=== PATIENT | female | born 1950 | race Caucasian/White ===

== ENCOUNTER 2019-10-19 17:11 | Emergency (ER) | payer BC, SELFPAY ==
--- NOTE | ~2019-10-19 | XR_ITS ---
EXAMINATION: XR chest 2V DATE: 10/19/2019 17:45 INDICATION: Asthma and hypertension presenting with dizziness and racing heart TECHNIQUE: PA and lateral views of the chest were obtained. COMPARISON: Chest radiograph dated 03/20/2019 FINDINGS: The lungs remain clear with no focal airspace opacities, pulmonary edema, pleural effusion or pneumot horax. The cardiomediastinal silhouette is normal. Mild to moderate thoracic spondylosis. IMPRESSION: 1. No acute cardiopulmonary disease. Reviewed, dictated and finalized at location [facility].
[2019-10-19 17:15] VITALS: BP 130/72; PULSE 133; RESP 24; TEMP 36.7; O2SAT 98
--- NOTE | 2019-10-19 17:19 | ECG_ITS ---
Measurements Intervals [place] Rate: 116 P: 67 CA: 141 QRS: -41 QRSD: 90 T: 82 QT: 331 QTc: 461 Interpretive Statements SINUS TACHYCARDIA LEFT AXIS DEVIATION POOR R WAVE PROGRESSION, ANTERIOR LEADS NONSPECIFIC ST & T-WAVE ABNORMALITY- HIGH LATERAL LEADS BASELINE ARTIFACT- I, II, AVR ABNORMAL ECG Electronically Signed On 10-20-2019 6:50:43 CDT by Isiah Cedeno D.O.
[2019-10-19 17:31] LABS: Basophils Absolute Auto 0.1 K/mm3 (0.0-0.1); Basophils Percent Auto 0.6 % (0.2-1.2); Eosinophils Absolute Auto 0.5 K/mm3 (0-0.3); Eosinophils Percent Auto 3.4 % (0-4.4); Hematocrit 44.2 % (37.0-47.0); Hemoglobin 14.3 g/dL (12.0-15.0); Immature Granulocyte Absolute 0.08 K/mm3 (0.00-0.031); Immature Granulocyte Percent A 0.6 % (0-0.5); Lymphocytes Absolute Auto 3.45 K/mm3 (0.9-3.2); Lymphocytes Percent Auto 24.1 % (18.3-44.2); Mean Corpuscular HGB Conc 32.4 g/dl (32-36); Mean Corpuscular Hemoglobin 27.3 pg (26-34); Mean Corpuscular Volume 84.5 fl (80-100); Mean Platelet Volume 10.2 fl (7.4-10.4); Monocytes Absolute Auto 1.4 K/mm3 (0.1-0.6); Monocytes Percent Auto 9.6 % (2.6-8.5); Neutrophils Absolute Auto 8.8 K/mm3 (1.3-6.7); Neutrophils Percent Auto 61.7 % (45.5-73.1); Platelet Count Result 478 k/mm3 (150-375); Red Blood Count 5.23 M/mm3 (4.2-5.4); Red Cell Distribution Width 14.6 % (11.5-14.5); White Blood Count 14.3 K/mm3 (4.5-10.0)
[2019-10-19 17:40] LABS: INR 1.1; Prothrombin Time 13.7 Seconds (11.1-14.7)
[2019-10-19 17:41] LABS: Blood Urea Nitrogen 15 mg/dL (7-17); Calcium 9.8 mg/dL (8.4-10.2); Carbon Dioxide 30 mmol/L (22-30); Chloride 99 mmol/L (98-107); Estimated CRCL calculation 50 ml/min; Estimated Glomerular Filt Rate 49; Glucose 131 mg/dL (65-105); Partial Thromboplastin Time 36.2 SECONDS (22.3-36.8); Potassium 3.3 mmol/L (3.4-5.0); Sodium 139 mmol/L (137-145)
[2019-10-19 17:52] LABS: Troponin I < 0.012 ng/mL (0.000-0.034)
--- NOTE | 2019-10-19 17:56 | ED.GENADULT ---
HPI - General Adult General Chief complaint: Arrhythmia/Palpitations Stated complaint: racing heart, SOB, dizzy Time Seen by Provider: 10/19/19 17:26 History of Present Illness HPI narrative: Patient is a 69 y/o female complaining moderate heart palpitation for 1-2 weeks. She also complains some dizziness/light-headedness. There is no alleviating or exacerbating factor. She denies any chest pain, SOB, room spinning sensation or passing out. Related Data Home Medications Medication Instructions Recorded Confirmed albuterol sulfate [ProAir HFA] See Rx Instructions .ROUTE .COMPLEX 03/20/19 03/20/19 alprazolam 0.25 mg PO Q6H PRN 03/20/19 03/20/19 atorvastatin 10 mg PO DAILY 03/20/19 03/20/19 duloxetine [Cymbalta] 60 mg PO DAILY 03/20/19 03/20/19 esomeprazole magnesium [Nexium] 20 mg PO EVERY OTHER DAY 03/20/19 03/20/19 fluticasone propion-salmeterol 1 puff INHALATION BID 03/20/19 03/20/19 [Advair Diskus] hydroxyzine HCl 25 mg PO QPM 03/20/19 03/20/19 metformin 500 mg PO DAILY 03/20/19 03/20/19 montelukast [Singulair] 10 mg PO DAILY 03/20/19 03/20/19 atorvastatin [Lipitor] 10/19/19 fluticasone propion-salmeterol INHALATION 10/19/19 [Advair Diskus] Allergies Allergy/AdvReac Type Severity Reaction Status Date / Time Sulfa (Sulfonamide AdvReac Unknown VOMITING Verified 10/19/19 17:19 Antibiotics) Review of Systems Constitutional: Constitutional: Denies chills, Denies fever(s), Denies headache(s) and Denies weakness Eyes: Eyes: Denies blurry vision ENT: Denies headache(s) and Denies neck pain Cardiovascular: Cardiovascular: Denies chest pain, Reports rapid heart rate and Denies dyspnea Respiratory: Respiratory: Denies cough and Denies dyspnea Gastrointestinal: Gastrointestinal: Denies abdominal pain, Denies diarrhea, Denies nausea and Denies vomiting Genitourinary: Genitourinary: Denies hematuria and Denies dysuria Musculoskeletal: Musculoskeletal: Denies back pain and Denies neck pain Neurologic: Denies vertigo, Reports dizziness, Denies syncope, Denies headache(s) and Denies weakness [facility] Past Medical History Medical History Anxiety Arthritis Asthma Depression DM II (diabetes mellitus, type II), controlled Eczema Endometriosis GERD (gastroesophageal reflux disease) GI bleed History of kidney stones Hypercholesteremia Hypertension Surgical History Surgical History History of appendectomy History of cholecystectomy History of hysterectomy History of local excision of skin lesion History of mastectomy Lt Family History Family History Father Family history of emphysema Family history of chronic obstructive pulmonary disease Family history of alcoholism Hypertension Mother Family history of malignant neoplasm of breast in first degree relative Family history of alcoholism Hypertension Cerebrovascular accident TIA (transient ischemic attack) Other Family history of cardiovascular disease Social History Social History Smoking status: Never smoker Second hand tobacco smoke exposure: No Alcohol intake: never Gender identity (if verbalized by the patient): Female Exam Const: General: no acute distress and well developed Orientation/consciousness: oriented to person, oriented to place, oriented to time and patient oriented x3 HENMT: Head: normocephalic Ears: external ears normal General nose exam: Normal external nose present Eyes: General: appearance normal, both eyes and all related structures Conjunctivae: conjunctivae normal Neck: Neck: normal visual inspection and full ROM Chest: Chest palpation & inspection: normal inspection of the chest and no tenderness Resp: Effort & Inspection: normal respiratory effort Auscultation: clear to auscultation b
[2019-10-19 20:17] VITALS: BP 119/66; PULSE 88; RESP 20; O2SAT 99
[2019-10-19 20:58] LABS: Troponin I < 0.012 ng/mL (0.000-0.034)
[2019-10-19 21:24] VITALS: BP 130/70; PULSE 80; RESP 20; O2SAT 99
[2019-10-19] MEDS: POTASSIUM CHLORIDE 20 MEQ TABLET PO (21:24)
== END 2019-10-19 21:25 | disposition home or self-care (01) ==
PROVIDERS: Emergency Medicine; Emergency Provider Emergency Medicine; PCP Physician Assistant
DX: R00.2 Palpitations (principal); F41.9 Anxiety disorder, unspecified; J45.909 Unspecified asthma, uncomplicated; M19.90 Unspecified osteoarthritis, unspecified site; E11.9 Type 2 diabetes mellitus without complications; K21.9 Gastro-esophageal reflux disease without esophagitis; Z87.442 Personal history of urinary calculi; E78.00 Pure hypercholesterolemia, unspecified; I10 Essential (primary) hypertension; N80.9 Endometriosis, unspecified; Z90.12 Acquired absence of left breast and nipple; E87.6 Hypokalemia; R00.0 Tachycardia, unspecified; R94.31 Abnormal electrocardiogram [ECG] [EKG]
CPT/HCPCS: 36415; 71046; 80048; 84443; 84484; 85025; 85610; 85730; 93005; 99284; A9270

== ENCOUNTER 2020-09-20 08:10 | Outpatient (CLI) | payer BC, SELFPAY ==
--- NOTE | ~2020-09-20 | MM_ITS ---
EXAMINATION: MM screening becca BI w jony HISTORY: Screening TECHNIQUE: Craniocaudal and mediolateral oblique 3-D tomosynthesis images were obtained and synthetic 2-D images were generated. CAD analysis was submitted and interpreted. COMPARISON: Comparison to multiple prior studies sequentially, with oldest reviewed study dated 07/2015. BREAST PARENCHYMAL COMPOSITION: The breasts are heterogeneously dense, which may obscure small masses . FINDINGS: Bilateral breast calcifications are not significantly changed. There is no evidence of susp icious mass, calcification, or architectural distortion to suggest malignancy in either breast. There has been no suspicious interval change. IMPRESSION: 1. No mammographic evidence of malignancy. 2. Recommend routine screening mammography in one year. BI-RADS Category 2: Benign finding(s). Reviewed, dictated and finalized at location [facility].
== END 2020-09-20 08:11 | disposition home or self-care (01) ==
PROVIDERS: PCP Physician Assistant; Visit Provider Physician Assistant
DX: Z12.31 Encounter for screening mammogram for malignant neoplasm of breast (principal)
CPT/HCPCS: 77063; 77067

== ENCOUNTER 2021-09-30 07:17 | Outpatient (CLI) | payer BC, SELFPAY ==
--- NOTE | ~2021-09-30 | MM_ITS ---
EXAMINATION: MM screening becca BI w jony HISTORY: Screening mammogram TECHNIQUE: Craniocaudal and mediolateral oblique 3-D tomosynthesis images were obtained and synthetic 2-D images were generated. CAD analysis was submitted and interpreted. COMPARISON: 09/20/2020 bilateral screening mammogram 03/2019 diagnostic left mammogram , 12/24/2015 bilateral screening mammogram examinations BREAST PARENCHYMAL COMPOSITION: The breasts are heterogeneously dense, which may obscure small masses . FINDINGS: Biopsy marker on the left; history of prior benign left breast biopsies. Scattered bilateral solitary grouped benign-appearing calcifications are again noted. There is no josie dence of suspicious mass, calcification, or architectural distortion to suggest malignancy in either breast. There has been no suspicious interval change. IMPRESSION: 1. No mammographic evidence of malignancy. 2. Recommend routine screening mammography in one year. BI-RADS Category 2: Benign finding(s). Reviewed, dictated and finalized at location A.
== END 2021-09-30 07:18 | disposition home or self-care (01) ==
LOC: ANHIMG 07:18
PROVIDERS: PCP Physician Assistant; Visit Provider Physician Assistant
DX: Z12.31 Encounter for screening mammogram for malignant neoplasm of breast (principal)
CPT/HCPCS: 77063; 77067

== ENCOUNTER 2022-11-29 13:04 | Emergency (ER) | payer BC, SELFPAY ==
[2022-11-29] VITALS (22 sets, daily range): BP systolic 97–134; BP diastolic 48–101; PULSE 88–136; RESP 11–41; TEMP 36.5; O2SAT 95–100
--- NOTE | ~2022-11-29 | CT_ITS ---
EXAMINATION: CT brain wo con DATE: 11/29/2022 15:13 INDICATION: Dizziness, visual complaint TECHNIQUE: Computed tomography (CT) of the head was performed without intravenous contrast. The mA wa s adjusted according to patient size. Iterative reconstruction technique was employed. Exam dose: 60 5.33 mGy-cm total exam DLP. COMPARISON: None FINDINGS: No intracranial mass lesion or hemorrhage or cerebrovascular accident, midline shift or mas s effect is detected. No subdural or epidural hematoma is detected. The orbital contents are unremarkable. The mastoid air cells and included paranasal sinuses are normally developed and aerated. No fracture or bone destruction of the cranial vault. IMPRESSION: No significant abnormality Reviewed, dictated and finalized at [facility]. Reviewed, dictated and finalized at location [facility]. IMPRESSION: No significant abnormality
--- NOTE | 2022-11-29 13:05 | ECG_ITS ---
Measurements Intervals [place] Rate: 94 P: 58 MO: 145 QRS: -41 QRSD: 76 T: 72 QT: 344 QTc: 431 Interpretive Statements SINUS RHYTHM LEFT AXIS DEVIATION POOR R WAVE PROGRESSION, ANTERIOR LEADS CONSIDER INFERIOR INFARCT, AGE INDETERMINATE BORDERLINE ST-T WAVE ABNORMALITY- HIGH LATERAL LEADS ABNORMAL ECG COMPARED TO ECG 10/19/2019 17:23:17 SINUS RHYTHM NOW PRESENT Electronically Signed On 11-29-2022 13:39:03 CDT by Isiah Cedeno D.O.
[2022-11-29 13:59] LABS: Basophils Absolute Auto 0.1 K/mm3 (0.0-0.1); Basophils Percent Auto 0.6 % (0.2-1.2); Eosinophils Absolute Auto 0.4 K/mm3 (0-0.3); Eosinophils Percent Auto 3.4 % (0-4.4); Hematocrit 42.9 % (37.0-47.0); Hemoglobin 14.3 g/dL (12.0-15.0); Immature Granulocyte Absolute 0.05 K/mm3 (0.00-0.031); Immature Granulocyte Percent A 0.4 % (0-0.5); Lymphocytes Percent Auto 25.4 % (18.3-44.2); Mean Corpuscular HGB Conc 33.3 g/dl (32-36); Mean Corpuscular Hemoglobin 29.7 pg (26-34); Monocytes Absolute Auto 0.9 K/mm3 (0.1-0.6); Neutrophils Percent Auto 63.2 % (45.5-73.1); Platelet Count Result 343 k/mm3 (150-375); Red Blood Count 4.82 M/mm3 (4.2-5.4); Red Cell Distribution Width 14.1 % (11.5-14.5); White Blood Count 12.6 K/mm3 (4.5-10.0)
[2022-11-29 14:24] LABS: Alanine Aminotransferase 32 U/L (6-35); Albumin Level 4.3 g/dL (3.5-5.1); Alkaline Phosphatase 64 U/L (38-126); Anion Gap 8 mmol/L (8-16); Aspartate Amino Transferase 27 U/L (14-36); Bilirubin,Total 0.6 mg/dL (0.2-1.3); Blood Urea Nitrogen 17 mg/dL (7-17); Calcium 9.8 mg/dL (8.4-10.2); Carbon Dioxide 28 mmol/L (22-30); Chloride 101 mmol/L (98-107); Estimated CRCL calculation 66 ml/min; Estimated Glomerular Filt Rate > 60; Glucose 122 mg/dL (65-110); Potassium 3.3 mmol/L (3.4-5.0); Sodium 137 mmol/L (137-145)
--- NOTE | 2022-11-29 14:55 | ED.DIZZY ---
HPI - Dizziness General Chief Complaint: Dizziness Stated Complaint: Lightheaded/dizziness/nausea Time Seen by Provider: 11/29/22 13:32 Source: patient Mode of arrival: ambulatory Limitations: no limitations History of Present Illness HPI Narrative: Patient is a 72 y/o female who presents to the ED with c/o dizziness. Patient reports she has been feeling dizzy and lightheaded intermittently since she sustained a head injury in the middle of July. She was not evaluated at that time. She states the lightheadedness occurs at random times, but is worse when turning her head left or right. She feels as though the symptoms have worsened over the last few weeks. She has not tried to get into her primary care doctor. She reports nausea associated with the lightheadedness. Denies vomiting. She states when she looks around, it feels as though her eyes take a second longer to get into focus. She denies any blurry vision or vision loss. Denies previous diagnosis of vertigo. Denies numbness, focal weakness, abdominal pain, chest pain, headache. Patient is concerned she is having a stroke. She is also concerned these may be side effects related to Ozempic. Patient is on Xarelto due to history of A-fib. Related Data Home Medications Medication Instructions Recorded Confirmed albuterol sulfate 90 mcg/actuation See Rx Instructions .Route .COMPLEX 03/20/19 03/20/19 aerosol inhaler (ProAir HFA) alprazolam 0.25 mg tablet 0.25 mg PO Q6H PRN Anxiety 03/20/19 03/20/19 atorvastatin 10 mg tablet 10 mg PO DAILY 03/20/19 03/20/19 duloxetine 60 mg capsule,delayed 60 mg PO DAILY 03/20/19 03/20/19 release (Cymbalta) esomeprazole magnesium 20 mg 20 mg PO EVERY OTHER DAY 03/20/19 03/20/19 capsule,delayed release (Nexium) fluticasone 100 mcg-salmeterol 50 1 puff inhalation BID 03/20/19 03/20/19 mcg/dose blistr powdr for inhalation (Advair Diskus) hydroxyzine HCl 25 mg tablet 25 mg PO QPM 03/20/19 03/20/19 metformin 500 mg tablet,extended 500 mg PO DAILY 03/20/19 03/20/19 release 24 hr montelukast 10 mg tablet 10 mg PO DAILY 03/20/19 03/20/19 (Singulair) atorvastatin 10 mg tablet (Lipitor) 10/19/19 fluticasone 500 mcg-salmeterol 50 inhalation 10/19/19 mcg/dose blistr powdr for inhalation (Advair Diskus) Allergies Allergy/AdvReac Type Severity Reaction Status Date / Time Sulfa (Sulfonamide AdvReac Unknown VOMITING Verified 10/19/19 17:19 Antibiotics) Review of Systems Review of Systems: CONSTITUTIONAL: Denies fever, chills, or sweats. EYES: See HPI. CARDIOVASCULAR: Denies chest pain. RESPIRATORY: Denies dyspnea. GASTROINTESTINAL: See HPI. GENITOURINARY: Denies dysuria or hematuria. MUSCULOSKELETAL: Denies back pain, joint pain, or myalgia. NEUROLOGIC: See HPI. All systems reviewed & are unremarkable except as noted in HPI and below PMFSH Past Medical History Medical History Anxiety Arthritis Asthma Depression DM II (diabetes mellitus, type II), controlled Eczema Endometriosis GERD (gastroesophageal reflux disease) GI bleed History of kidney stones Hypercholesteremia Hypertension Surgical History Surgical History History of appendectomy History of cholecystectomy History of hysterectomy History of local excision of skin lesion History of mastectomy Lt Family History Family History Father Family history of emphysema Family history of chronic obstructive pulmonary disease Family history of alcoholism Hypertension Mother Family history of malignant neoplasm of breast in first degree relative Family history of alcoholism Hypertension Cerebrovascular accident TIA (transient ischemic attack) Other Family history of cardiovascular disease Social History Social History (Reviewed 11/29/22 @ 18:14 by Marychuy Fournier
[2022-11-29] MEDS: ONDANSETRON INJ 4 MG/2 ML VIAL IV PUSH (15:25)
[2022-11-29] MEDS: SODIUM CHLORIDE 0.9% IV 1,000 ML 999 ML IV CONT (15:25)
[2022-11-29] MEDS: POTASSIUM CHLORIDE 20 MEQ PACKET (FOR LIQUID) PO (15:26)
[2022-11-29] MEDS: CARBAMIDE PEROXIDE 6.5% OT SOLN 15 ML BTL 5 DROP EACH EAR (16:03)
[2022-11-29] MEDS: MECLIZINE HCL 25 MG TABLET PO (16:03)
--- NOTE | 2022-12-07 10:35 | PC.NURSE ---
LATE ENTRY This note is being entered to document information to the patient's record. The following information was omitted on [11/29/2022], by [Wicho Ybarra RN ]. Removal of cerumen performed on both ears. Pt tolerated well. Scant amount of cerumen removed.
== END 2022-11-29 18:12 | disposition home or self-care (01) ==
PROVIDERS: Emergency Medicine; Emergency Provider Physician Assistant; PCP Physician Assistant
DX: R42 Dizziness and giddiness (principal); R11.0 Nausea; H61.23 Impacted cerumen, bilateral; I48.91 Unspecified atrial fibrillation; J45.909 Unspecified asthma, uncomplicated; E11.9 Type 2 diabetes mellitus without complications; E78.00 Pure hypercholesterolemia, unspecified; I10 Essential (primary) hypertension; N80.9 Endometriosis, unspecified; K21.9 Gastro-esophageal reflux disease without esophagitis; M19.90 Unspecified osteoarthritis, unspecified site; F41.9 Anxiety disorder, unspecified; Z87.442 Personal history of urinary calculi; Z90.49 Acquired absence of other specified parts of digestive tract; Z90.710 Acquired absence of both cervix and uterus; Z90.12 Acquired absence of left breast and nipple; Z79.01 Long term (current) use of anticoagulants; Z79.85 Long-term (current) use of injectable non-insulin antidiabetic drugs; Z79.84 Long term (current) use of oral hypoglycemic drugs; R94.31 Abnormal electrocardiogram [ECG] [EKG]
CPT/HCPCS: 36415; 69209; 70450; 80053; 85025; 93005; 96361; 96374; 99284; A9270; J2405; J7030